=== PATIENT | male | born 1950 | race African-American/Black ===

== ENCOUNTER 2016-10-26 06:16 | Emergency (ER) | payer OTHER ==
[~2016-10-26 06:16] MED LIST: ATENOLOL50 MG PO; NOR10 PO; PROTONIX40 MG PO; RENVELA800 M1 PO
[2016-10-26 07:53] LABS: BASOPHIL % 0.1 % (0-2); PLATELET COUNT 135 x10^3mcL (130-400); RED CELL DISTRIBUTION WIDTH 14.3 % (11.5-14.5)
[2016-10-26 08:04] LABS: BILIRUBIN TOTAL 0.5 mg/dL (0.20-1.00); CALCIUM 9.5 mg/dL (8.5-10.1); CARBON DIOXIDE 32.7 mmol/L (21-32); POTASSIUM SERUM 3.3 mmol/L (3.5-5.1); TOTAL PROTEIN, SERUM 6.7 g/dL (6.4-8.2)
[2016-10-26 08:07] LABS: ALBUMIN 2.8 g/dL (3.4-5.0); CREATININE SERUM 9.7 mg/dL (0.7-1.3)
[2016-10-26 08:47] VITALS: BP 138/72
== END 2016-10-26 08:48 | disposition home or self-care (01) ==
LOC: ED 06:16
PROVIDERS: Emergency Medicine
DX: R19.7 Diarrhea, unspecified (principal); I12.0 Hypertensive chronic kidney disease with stage 5 chronic kidney disease or end stage renal disease; N18.6 End stage renal disease
CPT/HCPCS: 36415

== ENCOUNTER 2016-10-27 09:21 | Emergency (ER) | payer OTHER ==
[2016-10-27 10:46] LABS: BASOPHIL % 0.3 % (0-2); PLATELET COUNT 153 x10^3mcL (130-400); RED CELL DISTRIBUTION WIDTH 14.1 % (11.5-14.5)
[2016-10-27 11:28] LABS: BILIRUBIN TOTAL 0.47 mg/dL (0.20-1.00); CALCIUM 9.2 mg/dL (8.5-10.1); CARBON DIOXIDE 28.9 mmol/L (21-32); POTASSIUM SERUM 3.6 mmol/L (3.5-5.1); TOTAL PROTEIN, SERUM 6.9 g/dL (6.4-8.2)
[2016-10-27 11:30] LABS: ALBUMIN 2.8 g/dL (3.4-5.0); CREATININE SERUM 13.3 mg/dL (0.7-1.3)
[2016-10-27 13:26] VITALS: BP 124/69
== END 2016-10-27 13:26 | disposition home or self-care (01) ==
LOC: ED 09:21
PROVIDERS: Emergency Medicine
DX: B34.9 Viral infection, unspecified (principal); I12.0 Hypertensive chronic kidney disease with stage 5 chronic kidney disease or end stage renal disease; N18.6 End stage renal disease; Z99.2 Dependence on renal dialysis; Z79.899 Other long term (current) drug therapy
CPT/HCPCS: 83880

== ENCOUNTER 2016-11-26 12:45 | Emergency (ER) | payer OTHER ==
[2016-11-26 13:48] VITALS: BP 157/88
== END 2016-11-26 13:48 | disposition home or self-care (01) ==
LOC: ED 12:45
DX: T82.838A Hemorrhage due to vascular prosthetic devices, implants and grafts, initial encounter (principal); I10 Essential (primary) hypertension; Y92.89 Other specified places as the place of occurrence of the external cause

== ENCOUNTER → 2017-01-20 | Outpatient (CLI) | payer OTHER | END | disposition home or self-care (01) | LOC: RD 14:21 | DX: M25.551 Pain in right hip (principal) ==

== ENCOUNTER 2018-04-24 15:46 | Inpatient (IN) | payer OTHER ==
[~2018-04-24] VITALS: Ht 188 cm; Wt 48.5 kg
[2018-04-24 15:51] VITALS: Ht 188 cm; Wt 48.5 kg
[2018-04-24] MEDS ORDERED: NATURE'S BLEND F1 MG PO (16:25)
[2018-04-24] MEDS ORDERED: HYDRALAZINE HCL50 MG PO (16:25)
[2018-04-24] MEDS ORDERED: NEPHRO-VITE VITA1 EA PO (16:26)
[2018-04-24] MEDS ORDERED: NOR10 PO (16:26)
[2018-04-24] MEDS ORDERED: CARVEDILOL12.5 M1 PO (16:27)
[2018-04-24] MEDS ORDERED: SENSIPAR30 M1 PO (16:27)
[2018-04-24 17:19] LABS: BASOPHIL % 0.3 % (0-2); PLATELET COUNT 187 x10^3mcL (130-400); RED CELL DISTRIBUTION WIDTH 13.7 % (11.5-14.5)
[2018-04-24 17:46] LABS: ALBUMIN 3.6 g/dL (3.4-5.0); BILIRUBIN TOTAL 0.5 mg/dL (0.20-1.00); CALCIUM 9.5 mg/dL (8.5-10.1); CARBON DIOXIDE 36.5 mmol/L (21-32); FREE T4 1.09 ng/dL (0.76-1.46); POTASSIUM SERUM 3.5 mmol/L (3.5-5.1); TOTAL PROTEIN, SERUM 8.2 g/dL (6.4-8.2)
[2018-04-24 18:12] LABS: ERYTHROCYTE SED RATE 69 mm/hr (0-20)
[2018-04-24 20:23] LABS: CHOLESTEROL/HDL RATIO 2.3; MAGNESIUM 2.2 mg/dL (1.8-2.4); PHOSPHOROUS 3.4 mg/dL (2.5-4.9)
[2018-04-24 22:01] VITALS: BP 186/93
[2018-04-25 00:30] VITALS: BP 156/90
[2018-04-25 06:02] VITALS: BP 177/89
[2018-04-25 06:30] LABS: BASOPHIL % 0.1 % (0-2); PLATELET COUNT 171 x10^3mcL (130-400); RED CELL DISTRIBUTION WIDTH 13.5 % (11.5-14.5)
[2018-04-25 07:07] LABS: C REACTIVE PROTEIN 0.8 mg/dL (<=0.9); CALCIUM 9.7 mg/dL (8.5-10.1); CARBON DIOXIDE 34.2 mmol/L (21-32); MAGNESIUM 2.3 mg/dL (1.8-2.4); PHOSPHOROUS 5.2 mg/dL (2.5-4.9); POTASSIUM SERUM 4.6 mmol/L (3.5-5.1)
[2018-04-25 07:09] LABS: CREATININE SERUM 9.8 mg/dL (0.7-1.3)
[2018-04-25 07:51] VITALS: BP 151/87
[2018-04-25 10:49] LABS: ERYTHROCYTE SED RATE 58 mm/hr (0-20)
[2018-04-25 12:07] VITALS: BP 148/78
[2018-04-25 14:09] VITALS: BP 148/78
== END 2018-04-25 17:15 | disposition home or self-care (01) | DRG 682 ==
LOC: ED 15:46 → MU 19:47
PROVIDERS: Emergency Medicine; ADMIT Internal Medicine
DX: I12.0 Hypertensive chronic kidney disease with stage 5 chronic kidney disease or end stage renal disease (principal); N18.6 End stage renal disease; K85.90 Acute pancreatitis without necrosis or infection, unspecified; Z94.0 Kidney transplant status; E83.39 Other disorders of phosphorus metabolism; Z68.23 Body mass index [BMI] 23.0-23.9, adult; Z99.2 Dependence on renal dialysis; Z87.891 Personal history of nicotine dependence
CPT/HCPCS: 84439; J7512; Q0092

== ENCOUNTER 2018-07-09 17:35 | Inpatient (IN) | payer OTHER ==
[~2018-07-09] VITALS: Ht 188 cm; Wt 77.3 kg
[~2018-07-09 17:35] MED LIST changes: +CARVEDILOL12.5 M1 PO; +HYDRALAZINE HCL50 MG PO; +NATURE'S BLEND F1 MG PO; +NEPHRO-VITE VITA1 EA PO; +SENSIPAR30 M1 PO
[2018-07-09 17:43] VITALS: Ht 188 cm; Wt 77.3 kg
[2018-07-09 18:53] LABS: BASOPHIL % 1.6 % (0-2); PLATELET COUNT 154 x10^3mcL (130-400); RED CELL DISTRIBUTION WIDTH 14.1 % (11.5-14.5)
[2018-07-09 19:19] LABS: BILIRUBIN TOTAL 0.5 mg/dL (0.20-1.00); CALCIUM 8.8 mg/dL (8.5-10.1); CARBON DIOXIDE 32.4 mmol/L (21-32); POTASSIUM SERUM 4.4 mmol/L (3.5-5.1); TOTAL PROTEIN, SERUM 7.5 g/dL (6.4-8.2)
[2018-07-09 19:42] LABS: ALBUMIN 2.2 g/dL (3.4-5.0)
[2018-07-09 19:45] LABS: CREATININE SERUM 10.7 mg/dL (0.7-1.3)
[2018-07-09 21:35] LABS: MAGNESIUM 2.3 mg/dL (1.8-2.4)
[2018-07-09 21:36] LABS: CHOLESTEROL/HDL RATIO 5.6
[2018-07-09 21:44] LABS: T3 TOTAL 0.57 ng/mL
[2018-07-09 21:45] LABS: FREE T4 1.41 ng/dL (0.76-1.46); FREE THYROXINE INDEX 2.8 ug/dL (1.4-4.5); T4(THYROXINE) 7.7 ug/dL (4.7-13.3)
[2018-07-09 22:32] VITALS: BP 98/47
[2018-07-10 05:14] VITALS: BP 104/60
[2018-07-10 06:32] LABS: PLATELET COUNT 143 x10^3mcL (130-400)
[2018-07-10 06:48] LABS: CALCIUM 8.5 mg/dL (8.5-10.1); CARBON DIOXIDE 30.9 mmol/L (21-32); MAGNESIUM 2.3 mg/dL (1.8-2.4); PHOSPHOROUS 3.5 mg/dL (2.5-4.9); POTASSIUM SERUM 4.5 mmol/L (3.5-5.1)
[2018-07-10 06:59] LABS: CREATININE SERUM 11.2 mg/dL (0.7-1.3)
[2018-07-10 07:06] LABS: RED CELL DISTRIBUTION WIDTH 14.6 % (11.5-14.5)
[2018-07-10 09:48] VITALS: BP 103/50
[2018-07-10 12:12] LABS: BAND NEUTROPHIL 3 % (0-10); BASOPHIL 0 % (0-2); MONOCYTE 17 % (0-7); SEGMENTED NEUTROPHILS 71 % (37-75)
[2018-07-10 12:13] LABS: PLATELET MORPHOLOGY PLATELETS DECREASED
[2018-07-10 12:14] LABS: rbc morphology (normal/abnorm) ABNORMAL (NORMAL)
[2018-07-10 13:55] VITALS: BP 94/54
[2018-07-10 16:33] VITALS: BP 97/48
[2018-07-10 20:40] VITALS: BP 122/52
[2018-07-11] VITALS (8 sets, daily range): BP systolic 91–104; BP diastolic 44–49
[2018-07-11 06:14] LABS: CALCIUM 7.8 mg/dL (8.5-10.1); POTASSIUM SERUM 3.8 mmol/L (3.5-5.1)
[2018-07-11 06:18] LABS: PLATELET COUNT 132 x10^3mcL (130-400)
[2018-07-11 06:33] LABS: CREATININE SERUM 8.1 mg/dL (0.7-1.3)
[2018-07-11 06:37] LABS: RED CELL DISTRIBUTION WIDTH 14.6 % (11.5-14.5)
[2018-07-11 09:32] LABS: BAND NEUTROPHIL 5 % (0-10); BASOPHIL 0 % (0-2); MONOCYTE 8 % (0-7); SEGMENTED NEUTROPHILS 71 % (37-75)
[2018-07-11 09:34] LABS: PLATELET MORPHOLOGY PLATELETS DECREASED; rbc morphology (normal/abnorm) ABNORMAL (NORMAL)
[2018-07-11 12:36] LABS: IRON 32 ug/dL (65-170); TOTAL IRON BINDING CAPACITY 79 ug/dL (250-450)
[2018-07-11 13:45] LABS: rbc morphology (normal/abnorm) ABNORMAL (NORMAL)
[2018-07-11 19:25] LABS: BASOPHIL % 0.6 % (0-2); RED CELL DISTRIBUTION WIDTH 13.9 % (11.5-14.5)
[2018-07-11 19:28] LABS: PLATELET COUNT 128 x10^3mcL (130-400)
[2018-07-12 05:19] VITALS: BP 105/53
[2018-07-12 06:22] LABS: CALCIUM 7.7 mg/dL (8.5-10.1); CARBON DIOXIDE 29.3 mmol/L (21-32); POTASSIUM SERUM 3.9 mmol/L (3.5-5.1)
[2018-07-12 06:27] LABS: CREATININE SERUM 10.1 mg/dL (0.7-1.3)
[2018-07-12 06:30] LABS: BASOPHIL % 0.1 % (0-2); PLATELET COUNT 133 x10^3mcL (130-400)
[2018-07-12 06:46] LABS: RED CELL DISTRIBUTION WIDTH 14.6 % (11.5-14.5)
[2018-07-12 09:03] VITALS: BP 106/54
[2018-07-12 17:51] VITALS: BP 121/70
[2018-07-12 19:50] VITALS: BP 118/57
[2018-07-13 05:31] VITALS: BP 106/56
[2018-07-13 06:57] LABS: CALCIUM 8.5 mg/dL (8.5-10.1); POTASSIUM SERUM 3.5 mmol/L (3.5-5.1)
[2018-07-13 06:59] LABS: CREATININE SERUM 7.9 mg/dL (0.7-1.3)
[2018-07-13 07:41] LABS: BASOPHIL % 0.6 % (0-2); PLATELET COUNT 146 x10^3mcL (130-400)
[2018-07-13 07:42] LABS: RED CELL DISTRIBUTION WIDTH 14.6 % (11.5-14.5)
[2018-07-13 08:45] VITALS: BP 106/54
[2018-07-13 12:17] VITALS: BP 109/85
[2018-07-13 16:25] VITALS: BP 117/77
[2018-07-13 20:07] VITALS: BP 109/59
[2018-07-14 05:36] VITALS: BP 114/61
[2018-07-14 06:41] LABS: PLATELET COUNT 147 x10^3mcL (130-400)
[2018-07-14 06:45] LABS: CALCIUM 8.2 mg/dL (8.5-10.1); CARBON DIOXIDE 26.6 mmol/L (21-32); POTASSIUM SERUM 3.8 mmol/L (3.5-5.1)
[2018-07-14 06:54] LABS: CREATININE SERUM 9.8 mg/dL (0.7-1.3)
[2018-07-14 07:42] VITALS: BP 109/54
[2018-07-14 07:44] LABS: RED CELL DISTRIBUTION WIDTH 14.9 % (11.5-14.5)
[2018-07-14] MEDS ORDERED: AMOXICILLIN500 M1 PO (09:18)
[2018-07-14 11:01] VITALS: BP 109/54
[2018-07-14 11:33] VITALS: BP 108/56
[2018-07-14 13:38] LABS: ATYPICAL LYMPH 5 %; BAND NEUTROPHIL 15 % (0-10); MONOCYTE 21 % (0-7); SEGMENTED NEUTROPHILS 44 % (37-75)
[2018-07-14 13:39] LABS: PLATELET MORPHOLOGY LARGE PLATELET SEEN; rbc morphology (normal/abnorm) ABNORMAL (NORMAL); schistocyte (helmet cell) 1+
== END 2018-07-14 13:00 | disposition home or self-care (01) | DRG 871 ==
LOC: ED 17:35 → MU 21:08 → EDBEDREQSVC 21:10 → EDBEDREQ 21:41 → MU 22:08
PROVIDERS: Emergency Medicine; Family Medicine; Internal Medicine; ADMIT Internal Medicine
DX: A41.9 Sepsis, unspecified organism (principal); N18.6 End stage renal disease; N17.0 Acute kidney failure with tubular necrosis; E43 Unspecified severe protein-calorie malnutrition; I12.0 Hypertensive chronic kidney disease with stage 5 chronic kidney disease or end stage renal disease; T86.11 Kidney transplant rejection; E87.1 Hypo-osmolality and hyponatremia; K05.01 Acute gingivitis, non-plaque induced; E83.39 Other disorders of phosphorus metabolism; R74.0 Nonspecific elevation of levels of transaminase and lactic acid dehydrogenase [LDH]; D63.1 Anemia in chronic kidney disease; E78.5 Hyperlipidemia, unspecified; Z99.2 Dependence on renal dialysis; Z68.21 Body mass index [BMI] 21.0-21.9, adult
CPT/HCPCS: 84439; 87804; 94150; 97110-GP; 97116-GP; 97530-GP; J0885-EC; J2270; J2405; J2543; J7030; J7040; J7050; J7060; J7620; P9016; Q0092; Q0163

== ENCOUNTER 2018-07-16 00:41 | Inpatient (IN) | payer OTHER ==
[2018-07-16] VITALS (7 sets, daily range): BP systolic 90–109; BP diastolic 49–55; Ht 188 cm; Wt 74.4 kg
[~2018-07-16] VITALS: Ht 188 cm; Wt 74.4 kg
[~2018-07-16 00:41] MED LIST changes: +AMOXICILLIN500 M1 PO
[2018-07-16 02:09] LABS: PLATELET COUNT 211 x10^3mcL (130-400)
[2018-07-16 02:14] LABS: RED CELL DISTRIBUTION WIDTH 15.8 % (11.5-14.5)
[2018-07-16 02:27] LABS: ALBUMIN 2.1 g/dL (3.4-5.0); BILIRUBIN TOTAL 0.6 mg/dL (0.20-1.00); CALCIUM 8.9 mg/dL (8.5-10.1); CARBON DIOXIDE 24.2 mmol/L (21-32)
[2018-07-16 02:28] LABS: CREATININE SERUM 9.6 mg/dL (0.7-1.3)
[2018-07-16 02:34] LABS: BAND NEUTROPHIL 4 % (0-10); METAMYELOCTE 1 % (0-2); MONOCYTE 10 % (0-7); SEGMENTED NEUTROPHILS 71 % (37-75)
[2018-07-16 02:36] LABS: rbc morphology (normal/abnorm) ABNORMAL (NORMAL)
[2018-07-16 02:38] LABS: PLATELET MORPHOLOGY PLATELETS NORMAL
[2018-07-16 04:27] LABS: MAGNESIUM 2.1 mg/dL (1.8-2.4); PHOSPHOROUS 2.5 mg/dL (2.5-4.9)
[2018-07-16 04:30] LABS: FREE T4 1.63 ng/dL (0.76-1.46)
[2018-07-16 04:38] LABS: CHOLESTEROL/HDL RATIO 5.1
[2018-07-16 04:56] LABS: T3 TOTAL 0.61 ng/mL
[2018-07-16 07:13] LABS: BILIRUBIN DIRECT 0.19 mg/dL (0.0-0.2); BILIRUBIN TOTAL 0.41 mg/dL (0.20-1.00); CALCIUM 8.2 mg/dL (8.5-10.1); CARBON DIOXIDE 25.2 mmol/L (21-32); MAGNESIUM 1.8 mg/dL (1.8-2.4); PHOSPHOROUS 2.9 mg/dL (2.5-4.9); POTASSIUM SERUM 3.8 mmol/L (3.5-5.1); TOTAL PROTEIN, SERUM 6.6 g/dL (6.4-8.2)
[2018-07-16 07:17] LABS: ALBUMIN 1.8 g/dL (3.4-5.0)
[2018-07-16 07:39] LABS: BASOPHIL % 0.7 % (0-2); PLATELET COUNT 156 x10^3mcL (130-400)
[2018-07-16 07:41] LABS: RED CELL DISTRIBUTION WIDTH 15.3 % (11.5-14.5)
[2018-07-17 05:54] VITALS: BP 102/56
[2018-07-17 06:26] LABS: PLATELET COUNT 189 x10^3mcL (130-400)
[2018-07-17 06:43] LABS: CALCIUM 8.6 mg/dL (8.5-10.1); CARBON DIOXIDE 22.9 mmol/L (21-32); POTASSIUM SERUM 4.4 mmol/L (3.5-5.1)
[2018-07-17 06:52] LABS: CREATININE SERUM 11.9 mg/dL (0.7-1.3)
[2018-07-17 09:00] VITALS: BP 114/61
[2018-07-17 09:05] LABS: RED CELL DISTRIBUTION WIDTH 16.3 % (11.5-14.5)
[2018-07-17 13:02] LABS: ATYPICAL LYMPH 2 %; BAND NEUTROPHIL 4 % (0-10); BASOPHIL 0 % (0-2); MONOCYTE 6 % (0-7); SEGMENTED NEUTROPHILS 83 % (37-75)
[2018-07-17 13:03] LABS: PLATELET MORPHOLOGY PLATELETS DECREASED; rbc morphology (normal/abnorm) ABNORMAL (NORMAL)
[2018-07-17 13:14] VITALS: BP 106/60
[2018-07-17 14:25] VITALS: BP 125/71
[2018-07-17 17:47] VITALS: BP 118/61
[2018-07-17 21:12] VITALS: BP 132/72
[2018-07-18 05:52] VITALS: BP 107/65
[2018-07-18 06:57] LABS: CALCIUM 8.7 mg/dL (8.5-10.1); CARBON DIOXIDE 23.7 mmol/L (21-32); MAGNESIUM 1.8 mg/dL (1.8-2.4); POTASSIUM SERUM 3.8 mmol/L (3.5-5.1)
[2018-07-18 07:05] LABS: CREATININE SERUM 8.7 mg/dL (0.7-1.3)
[2018-07-18 07:08] LABS: PLATELET COUNT 177 x10^3mcL (130-400)
[2018-07-18 07:19] LABS: RED CELL DISTRIBUTION WIDTH 15.7 % (11.5-14.5)
[2018-07-18 09:23] VITALS: BP 115/59
[2018-07-18 09:27] LABS: ATYPICAL LYMPH 3 %; BAND NEUTROPHIL 6 % (0-10); BASOPHIL 0 % (0-2); MONOCYTE 13 % (0-7); SEGMENTED NEUTROPHILS 70 % (37-75)
[2018-07-18 09:29] LABS: PLATELET MORPHOLOGY PLATELETS DECREASED; rbc morphology (normal/abnorm) ABNORMAL (NORMAL)
[2018-07-18 13:29] VITALS: BP 118/62
[2018-07-18 18:43] VITALS: BP 133/71
[2018-07-18 20:42] VITALS: BP 124/63
[2018-07-19] VITALS (7 sets, daily range): BP systolic 113–138; BP diastolic 62–78
[2018-07-19 06:40] LABS: CALCIUM 8.5 mg/dL (8.5-10.1); CARBON DIOXIDE 23.4 mmol/L (21-32); MAGNESIUM 1.8 mg/dL (1.8-2.4); POTASSIUM SERUM 3.9 mmol/L (3.5-5.1)
[2018-07-19 07:19] LABS: CREATININE SERUM 10.7 mg/dL (0.7-1.3)
[2018-07-19 07:32] LABS: RED CELL DISTRIBUTION WIDTH 16.5 % (11.5-14.5)
[2018-07-19 15:00] LABS: SEGMENTED NEUTROPHILS 46 % (37-75)
[2018-07-19 15:01] LABS: BAND NEUTROPHIL 13 % (0-10); ovalocyte/elliptocyte 1+; rbc morphology (normal/abnorm) ABNORMAL (NORMAL)
[2018-07-19 15:03] LABS: MONOCYTE 31 % (0-7)
[2018-07-19 15:04] LABS: PLATELET COUNT 188 x10^3mcL (130-400)
[2018-07-19 15:34] LABS: PATH REVIEW for HEMA YES
[2018-07-20 06:15] VITALS: BP 141/69
[2018-07-20 06:33] LABS: CALCIUM 8.9 mg/dL (8.5-10.1); CARBON DIOXIDE 27.9 mmol/L (21-32); POTASSIUM SERUM 3.4 mmol/L (3.5-5.1)
[2018-07-20 06:36] LABS: CREATININE SERUM 8.5 mg/dL (0.7-1.3)
[2018-07-20 06:52] LABS: PLATELET COUNT 185 x10^3mcL (130-400)
[2018-07-20 07:24] VITALS: BP 132/69
[2018-07-20 07:48] LABS: RED CELL DISTRIBUTION WIDTH 16.8 % (11.5-14.5)
[2018-07-20 13:55] LABS: ATYPICAL LYMPH 4 %; BAND NEUTROPHIL 3 % (0-10); BASOPHIL 0 % (0-2); MONOCYTE 14 % (0-7); SEGMENTED NEUTROPHILS 68 % (37-75)
[2018-07-20 13:56] LABS: PLATELET MORPHOLOGY PLATELETS DECREASED; rbc morphology (normal/abnorm) ABNORMAL (NORMAL)
[2018-07-20 16:46] VITALS: BP 133/71
[2018-07-20 20:49] VITALS: BP 131/80
[2018-07-21 06:08] VITALS: BP 113/73
[2018-07-21 06:51] LABS: PLATELET COUNT 195 x10^3mcL (130-400)
[2018-07-21 07:19] LABS: CALCIUM 9.3 mg/dL (8.5-10.1); CARBON DIOXIDE 25.8 mmol/L (21-32); POTASSIUM SERUM 3.6 mmol/L (3.5-5.1)
[2018-07-21 07:29] LABS: CREATININE SERUM 10.6 mg/dL (0.7-1.3)
[2018-07-21 07:33] VITALS: BP 135/75
[2018-07-21 08:51] LABS: RED CELL DISTRIBUTION WIDTH 17.4 % (11.5-14.5)
[2018-07-21 12:41] LABS: BAND NEUTROPHIL 7 % (0-10); MONOCYTE 7 % (0-7); SEGMENTED NEUTROPHILS 65 % (37-75)
[2018-07-21 12:42] LABS: ATYPICAL LYMPH 6 %; PLATELET MORPHOLOGY PLATELETS DECREASED
[2018-07-21 12:43] LABS: rbc morphology (normal/abnorm) ABNORMAL (NORMAL); schistocyte (helmet cell) 1+
[2018-07-21 20:37] VITALS: BP 112/57
[2018-07-22 06:04] VITALS: BP 112/58
[2018-07-22 06:24] LABS: CALCIUM 9.2 mg/dL (8.5-10.1); CARBON DIOXIDE 31.3 mmol/L (21-32); MAGNESIUM 1.8 mg/dL (1.8-2.4); POTASSIUM SERUM 3.4 mmol/L (3.5-5.1)
[2018-07-22 06:33] LABS: PLATELET COUNT 172 x10^3mcL (130-400)
[2018-07-22 06:48] LABS: RED CELL DISTRIBUTION WIDTH 17.1 % (11.5-14.5)
[2018-07-22 09:25] VITALS: BP 159/76
[2018-07-22 10:14] VITALS: BP 159/76
[2018-07-22 10:22] LABS: ATYPICAL LYMPH 4 %; BAND NEUTROPHIL 5 % (0-10); BASOPHIL 0 % (0-2); MONOCYTE 7 % (0-7); SEGMENTED NEUTROPHILS 69 % (37-75)
[2018-07-22 10:23] LABS: PLATELET MORPHOLOGY PLATELETS DECREASED
[2018-07-22 10:24] LABS: rbc morphology (normal/abnorm) ABNORMAL (NORMAL)
[2018-07-22 17:08] VITALS: BP 115/62
[2018-07-22 21:32] VITALS: BP 133/77
[2018-07-23 05:54] LABS: PLATELET COUNT 156 x10^3mcL (130-400)
[2018-07-23 05:55] VITALS: BP 123/62
[2018-07-23 06:35] LABS: CARBON DIOXIDE 26.7 mmol/L (21-32); POTASSIUM SERUM 3.3 mmol/L (3.5-5.1)
[2018-07-23 06:39] LABS: CREATININE SERUM 10.2 mg/dL (0.7-1.3)
[2018-07-23 07:00] LABS: RED CELL DISTRIBUTION WIDTH 16.9 % (11.5-14.5)
[2018-07-23 09:29] VITALS: BP 111/60
[2018-07-23 11:26] LABS: ATYPICAL LYMPH 3 %; BAND NEUTROPHIL 5 % (0-10); BASOPHIL 1 % (0-2); MONOCYTE 13 % (0-7); SEGMENTED NEUTROPHILS 58 % (37-75)
[2018-07-23 11:28] LABS: PLATELET MORPHOLOGY PLATELETS DECREASED; rbc morphology (normal/abnorm) ABNORMAL (NORMAL)
[2018-07-23 13:25] VITALS: BP 111/60
[2018-07-23 16:31] VITALS: BP 129/71
[2018-07-23 21:08] VITALS: BP 143/84
[2018-07-24 06:06] VITALS: BP 102/56
[2018-07-24 06:26] LABS: PLATELET COUNT 155 x10^3mcL (130-400)
[2018-07-24 06:41] LABS: CALCIUM 9.1 mg/dL (8.5-10.1); CARBON DIOXIDE 27.5 mmol/L (21-32); POTASSIUM SERUM 3.4 mmol/L (3.5-5.1)
[2018-07-24 07:06] LABS: RED CELL DISTRIBUTION WIDTH 16.9 % (11.5-14.5)
[2018-07-24 08:49] LABS: RED CELL DISTRIBUTION WIDTH 17.7 % (11.5-14.5)
[2018-07-24 08:50] LABS: PLATELET COUNT 147 x10^3mcL (130-400)
[2018-07-24 09:37] VITALS: BP 122/59
[2018-07-24] MEDS ORDERED: NOVAPLUS ZOSYN1 PD1 IV (10:33)
[2018-07-24] MEDS ORDERED: AMERINET CHOICE1 G1 IV (10:33)
[2018-07-24 12:47] LABS: ATYPICAL LYMPH 5 %; BAND NEUTROPHIL 4 % (0-10); BASOPHIL 0 % (0-2); MONOCYTE 12 % (0-7); MYELOCYTE 1 % (0-2); SEGMENTED NEUTROPHILS 56 % (37-75)
[2018-07-24 12:48] LABS: PLATELET MORPHOLOGY PLATELETS DECREASEDP; rbc morphology (normal/abnorm) ABNORMAL (NORMAL)
[2018-07-24 13:19] LABS: ATYPICAL LYMPH 5 %; BAND NEUTROPHIL 4 % (0-10); BASOPHIL 0 % (0-2); MONOCYTE 12 % (0-7); PLATELET MORPHOLOGY PLATELETS DECREASED; SEGMENTED NEUTROPHILS 56 % (37-75); rbc morphology (normal/abnorm) ABNORMAL (NORMAL)
[2018-07-24 14:54] VITALS: BP 122/59
== END 2018-07-24 16:30 | DRG 871 ==
LOC: ED 00:41 → MU 03:19 → DU 03:19 → MU 07-19 17:15
PROVIDERS: Emergency Medicine; Internal Medicine; ADMIT Family Medicine
DX: A41.9 Sepsis, unspecified organism (principal); J69.0 Pneumonitis due to inhalation of food and vomit; J96.00 Acute respiratory failure, unspecified whether with hypoxia or hypercapnia; N18.6 End stage renal disease; E43 Unspecified severe protein-calorie malnutrition; N39.0 Urinary tract infection, site not specified; R59.0 Localized enlarged lymph nodes; K08.9 Disorder of teeth and supporting structures, unspecified; D63.1 Anemia in chronic kidney disease; Z68.21 Body mass index [BMI] 21.0-21.9, adult; Z90.5 Acquired absence of kidney; Z99.2 Dependence on renal dialysis
CPT/HCPCS: 82962; 84439; 85060; 94150; 97116-GP; 97530-GP; J0456; J0696; J0885-EC; J2543; J3370; J3490; J7030; J7040; J7050; J7613; J7620; J7644; P9016; Q0092; Q0163; Q9967

== ENCOUNTER 2018-08-06 01:06 | Inpatient (IN) | payer OTHER ==
[~2018-08-06] VITALS: Ht 188 cm; Wt 79.2 kg
[~2018-08-06 01:06] MED LIST changes: +AMERINET CHOICE1 G1 IV; +NOVAPLUS ZOSYN1 PD1 IV
[2018-08-06 01:15] VITALS: Ht 188 cm; Wt 79.2 kg
--- NOTE | 2018-08-06 01:19 | NUR ---
PT BIBA FOR COMPLAINTS OF FEVER, DIARRHEA, AND HYPOTENSION. PT CAME FROM [facility], AND NURSES COULD NOT START IV SO BROUGHT IN TO ER. PT HAS NO OTHER COMPLAINTS AT THIS TIME. PT HAS HISTORY OF PNEUMONIA AND HYPERTENSION. HAS L SHUNT IN PLACE FOR DIALYSIS. LAST HAD DIALYSIS ON MONDAY. PT CONNECTED TO POST PRODUCTION ASSISTANT. BP WNL.
[2018-08-06 02:13] LABS: BILIRUBIN TOTAL 0.6 mg/dL (0.20-1.00); CALCIUM 8.7 mg/dL (8.5-10.1); CARBON DIOXIDE 26.8 mmol/L (21-32); POTASSIUM SERUM 3.9 mmol/L (3.5-5.1); TOTAL PROTEIN, SERUM 6.8 g/dL (6.4-8.2)
[2018-08-06 02:14] LABS: ALBUMIN 2.2 g/dL (3.4-5.0)
[2018-08-06 02:17] LABS: CREATININE SERUM 7.4 mg/dL (0.7-1.3)
[2018-08-06 02:33] LABS: PLATELET COUNT 191 x10^3mcL (130-400)
[2018-08-06 02:39] LABS: RED CELL DISTRIBUTION WIDTH 23.3 % (11.5-14.5)
[2018-08-06 03:25] LABS: ATYPICAL LYMPH 5 %; BAND NEUTROPHIL 13 % (0-10); BLAST 10 % (0); METAMYELOCTE 3 % (0-2); MONOCYTE 5 % (0-7); SEGMENTED NEUTROPHILS 40 % (37-75)
[2018-08-06 03:29] LABS: PLATELET MORPHOLOGY FEW LARGE PLATELETS; rbc morphology (normal/abnorm) ABNORMAL (NORMAL); tear drop cell (dacryocyte) 1+
[2018-08-06 03:30] LABS: PATH REVIEW for HEMA YES
[2018-08-06 03:58] LABS: PHOSPHOROUS 3.9 mg/dL (2.5-4.9)
--- NOTE | 2018-08-06 04:03 | NUR ---
CALLED REPORT TO BRIANNA POLK. ALL QUESTIONS AND CONCERNS ANSWERED.
--- NOTE | 2018-08-06 04:47 | NUR ---
PT ARRIVED ON THE FLOOR FROM ER VIA GUERNEASY ACCOMPANIED BY NURSE. PT IS ADMITTED W/ C/O FEVER, DIARRHEA AND HYPOTENSION. HE IS ALERT,ORIENTED X4. LUNGS CTA. NO SOB ON RA. BOWEL SOUNDS ACTIVE. ABDOMEN IS FLAT AND SOFT. HE HAS NO C/O PAIN AT THIS TIME. PT STATD HIS LAST BM WAS YESTERDAY AND WATERY. PT HAS AV SHUNT TO [facility] W/ (+) bruit and thrill.LAST HD WAS MONDAY PER PT. PT IS ANURIC. W/ HL TO RT HAND. CALL LIGHT PLACED W/IN REACH.
[2018-08-06 05:06] VITALS: BP 98/50
--- NOTE | 2018-08-06 05:06 | NUR ---
PT BROUGHT UPSTAIRS TO TELE BY JAMES RN. PT TOLERATED WELL.
--- NOTE | 2018-08-06 05:57 | NUR ---
PT MEDICATED W/ TYLENOL 650 MG PO FOR AMPQ=439.8 .
--- NOTE | 2018-08-06 06:30 | NUR ---
HL TO RT HAND ACCIDENTALLY PULLED OUT BY PT. STARTED NEW IV ON THE RT WRIST.
--- NOTE | 2018-08-06 06:53 | NUR ---
TEMP RECHECKED= 101.7 AFTER TYLENOL WAS GIVEN. COOLING MEASURES IMPLEMENTED AT THIS TIME.
--- NOTE | 2018-08-06 07:40 | NUR ---
PT IS AAOX4. RESP EVEN AND UNLABORED. PT HAS RUL FINE CRACKLES. ON R/A. TELE [address] READING SINUS TACH WITH BBB AND DEPRESSED ST. HR 110.PT AHD LLE TRACE EDEMA. PERIPHERAL PULSES PALPABLE. IV CATH TO RW N/S LOCKED, FLUSHED AND PATENT. SITE WNL. PT DENIES PAIN OR DISCOMFORT. CALL LIGHT WITHIN REACH. BED IN LOW POSITION. BED ALARM ON.
[2018-08-06 08:16] LABS: CALCIUM 8.1 mg/dL (8.5-10.1); CARBON DIOXIDE 25.2 mmol/L (21-32); POTASSIUM SERUM 3.5 mmol/L (3.5-5.1)
[2018-08-06 08:19] LABS: CREATININE SERUM 7.9 mg/dL (0.7-1.3)
[2018-08-06 08:28] LABS: PLATELET COUNT 188 x10^3mcL (130-400)
[2018-08-06 08:35] LABS: RED CELL DISTRIBUTION WIDTH 23.1 % (11.5-14.5)
--- NOTE | 2018-08-06 08:49 | NUR ---
REPORTED TO DR. RUIZ PT'S B/P 85/41 (51), HR 112. PT'S WBC =67.1, CREA= 7.9. PT IS SYMPTOMATIC WITH C/O OF WEAKNESS AND DIZZINESS. NO NEW ORDERS AT THIS TIME. DUE MEDS GIVEN. HOB HORIZONTAL. PT ON COOLING MEASURES. FALL PRECAUTIONS IN PLACE. BED ALARM ON. CALL LIGHT WITHIN REACH.
--- NOTE | 2018-08-06 09:09 | NUR ---
PT IS SITTING UP IN BED WATCHING TV. RESP EVEN AND UNLABORED. DENIES PAIN AND DISCOMFORT. DUE MEDS GIVEN. NO DISTRESS NOTED. CALL LIGHT WITHIN REACH.
--- NOTE | 2018-08-06 09:22 | NUR ---
PRO-AMATINE 5MG PO GIVEN FOR SBP 85/41 (81). PT HOB IS FLAT. PT DENIES DIZZINESS AT THIS TIME. CALL LIGHT WITHIN REACH. WILL CONTINUE TO MONITOR.
[2018-08-06 09:25] VITALS: BP 85/41
--- NOTE | 2018-08-06 10:08 | NUR ---
AM ROUNDS DONE BY DR. DOHERTY AND HEALTHCARE TEAM. PT HAS BEEN GIVEN MED TO HELP INCREASE B/P. PT WILL BE GIVEN ABT TO TREAT POSSIBLE CDIFF. PT WILL BE GIVEN AND INFECTIOUS DISEASE CONSULT ORDER. PT AND AGREED WITH POC.
--- NOTE | 2018-08-06 11:42 | NUR ---
REPORTED TO DR. RUIZ THAT PT RECEIVED PRO-AMATINE AT 0920. PT'S B/P AT 1130 IS 85/41 (51), HR 95. PT REMAINS LYING FLAT IN BED. STATES HE FEELS WEAK WITH NO DIZZINESS. NO NEW ORDERS AT THIS TIME.
--- NOTE | 2018-08-06 11:53 | NUR ---
DR. RUIZ STATED THAT FOR PT'S LOW B/P 85/41 (51) TO GIVE PRO-AMATINE AT 1520 IF PT'S SBP REMAINS BELOW 90MMHG.
[2018-08-06 12:42] VITALS: BP 93/43
--- NOTE | 2018-08-06 12:57 | NUR ---
PT'S B/P 93/43 (59). RESP EVEN AND UNLABORED. PT DENIES PAIN, DISCOMFORT, AND DIZZINESS. PT IS SITTING UP EATING LUNCH AND VISITING WITH AND DAUGHTER. NO DISTRESS NOTED. CONTACT PRECAUTIONS MAINTAINED. CALL LIGHT WITHIN REACH.
[2018-08-06 14:32] LABS: ATYPICAL LYMPH 4 %; BAND NEUTROPHIL 8 % (0-10); BASOPHIL 0 % (0-2); MONOCYTE 5 % (0-7); PLATELET MORPHOLOGY PLATELETS DECREASED; SEGMENTED NEUTROPHILS 67 % (37-75); rbc morphology (normal/abnorm) ABNORMAL (NORMAL)
--- NOTE | 2018-08-06 15:30 | NUR ---
PT RECEIVED WOUND CARE FOR BILATERAL BUTTOCK EXCORIATION AND WOUND TO SACRAL AREA. CLEANSED WITH N/S, PATTED DRY AND APPLIED HYDORGEL AND OPTIFOAM DRESSING TO SACRUUM AND NONADHERENT 4X4 TO BILATERAL BUTTOCK. AIR MATRESS APPLIED TO BED. PT TURN TO R SIDE. PT TAUGHT TO TURN AND REPOSITION FREQUENTLY WHEN IN BED. PT VERBALIZED UNDERSTANDING. CALL LIGHT WITHIN REACH. BED IN LOWEST POSITION. CONTACT PRECAUTIONS OBSERVED. BED ALARM ON.
[2018-08-06 16:00] VITALS: BP 102/48
--- NOTE | 2018-08-06 18:20 | NUR ---
PT IS AAOX4. RESP EVEN AND UNLABORED. PT IS AFEBRILE. DENIES PAIN. NO DISTRESS NOTED. OPTIFOAM IN PLACE TO SACRUUM, CDI. [address] TO BILATERAL BUTTOCKS, CDI. IV CATH N/S LOCKED TO [facility]. SITE WNL. BED IN LOWEST POSITION. CALL LIGHT WITHIN REACH. CONTACT PRECAUTIONS OBSERVED. BED ALARM ON. PT TURNED AND REPOSITIONED THROUGH OUT SHIFT. WILL ENDORSE ALL CARE TO NOC RN.
--- NOTE | 2018-08-06 19:00 | NUR ---
RECEIVED PT IN BED COMFORTABLY RESTING.AAOX4.LUNG SOUND CTA.BREATHING EVEN AND UNLABORED.DENIES ANY PAIN AT THIS TIME.AV SHUNT TO LFA. POSITIVE OF BRUIT AND THRILL. IV SITE TO RW PATENT AND INTACT.AIRMATTRESS IN PLACED.SACRAL WOUND WITH OPTIFOAM AND BILATERAL BUTTOCK WITH 3X4 NON ADHERENT DRESSING.CDI.BED IN LOWEST POSITION,SIDERAILS UP. CALL LIGHT WITHIN REACH. WILL CONTINUE TO MONITOR.
[2018-08-06 21:04] VITALS: BP 98/47
[2018-08-07] VITALS (7 sets, daily range): BP systolic 83–99; BP diastolic 40–51
--- NOTE | 2018-08-07 03:00 | NUR ---
PT HAD LOOSE BM.BUT THE INTERNET SYSTEMS ADMINISTRATOR FORGOT TO COLLECT THE STOOL SAMPLE. REMINDED THE INTERNET SYSTEMS ADMINISTRATOR TO COLLECT NEXT TIME.
--- NOTE | 2018-08-07 05:06 | NUR ---
PT APPEARS TO BE SLEEPING.NO SOB NOTED. NO C/O PAIN.BED IN LOWEST POSITION,CALL LIGHT WITHIN REACH. WILL CONTINUE TO MONITOR.
--- NOTE | 2018-08-07 06:06 | NUR ---
REFUSED TYLENOL FOR TEMP. INITIATED COOLING MEASURES. WILL CONTINUE TO MONITOR.
[2018-08-07 06:58] LABS: CALCIUM 8.4 mg/dL (8.5-10.1); CARBON DIOXIDE 26.3 mmol/L (21-32); POTASSIUM SERUM 3.7 mmol/L (3.5-5.1)
[2018-08-07 07:00] LABS: CREATININE SERUM 9.4 mg/dL (0.7-1.3)
--- NOTE | 2018-08-07 07:00 | NUR ---
RECEIVED PATIENT FROM RN TRAVELING NURSE. PATIENT IS AWAKE, ALERT AND ORIENTED. CONTACT PREC IN PLACE. TELE#7, SR, HR 95. ON ROOM AIR, BREATHING EVEN AND UNLABORED. AV SHUNT NOTED TO LFA. AIR MATTRESS AND FALL PREC IN PLACE. IV NOTED TO RW, SALINE LOCKED, NO S/S ERYTHEMA AT SITE. CALL LIGHT WITHIN EASY REACH. WILL CONTINUE PLAN OF CARE.
--- NOTE | 2018-08-07 07:21 | NUR ---
CARE ENDORSED TO DAY NURSE CASS.
[2018-08-07 07:42] LABS: PLATELET COUNT 129 x10^3mcL (130-400); RED CELL DISTRIBUTION WIDTH 22.8 % (11.5-14.5)
--- NOTE | 2018-08-07 08:50 | NUR ---
DR HOFF NOTIFIED VIA [place] OF BP 88/40 (56). PATIENT DENIES DIZZINESS AMD LIGHTHEADEDNESS. PATIENT IN TRENDELEMBERG POSITION. PROAMATINE GIVEN BY NOC NURSE AROUND 0600. ORDER IS TO BE GIVEN Q6HP. WILL FOLLOW UP.
--- NOTE | 2018-08-07 08:57 | NUR ---
DR HOFF PAGED AT THIS TIME. WILL FOLLOW UP.
--- NOTE | 2018-08-07 10:42 | NUR ---
DR HOFF NOTIFIED OF AM LABS: WBC 66.7. NO FURTHER ORDERS AT THIS TIME. WILL CONTINUE TO MONITOR.
[2018-08-07 12:28] LABS: ATYPICAL LYMPH 7 %; BAND NEUTROPHIL 13 % (0-10); BASOPHIL 0 % (0-2); MONOCYTE 7 % (0-7); SEGMENTED NEUTROPHILS 62 % (37-75); rbc morphology (normal/abnorm) ABNORMAL (NORMAL)
[2018-08-07 12:29] LABS: PLATELET MORPHOLOGY PLATELETS DECREASED
--- NOTE | 2018-08-07 13:23 | NUR ---
DR HOFF PAGED AT THIS TIME REGARDING THE PROCRIT MEDICATION TO BE VERIFIED BY PHARMACY. PENDING CALL BACK.
--- NOTE | 2018-08-07 14:03 | NUR ---
STOOL SAMPLE COLLECTED AND SENT TO LAB AT THIS TIME.
--- NOTE | 2018-08-07 14:34 | NUR ---
WOUND CARE COMPLETED AT THIS TIME PER ORDERS. CLEANSED WITH NS, HYDRAGUARD APPLIED. ADAPTIC DRESSING AND 4X4 GUAZE APPLIED TO RIGHT AND LEFT BUTTOCKS. SURESITE APPLIED. OPTIFOAM TO SACRUM. PATIENT DENIES PAIN DURING DRESSING CHANGE, TOLERATED WELL.
[2018-08-07 14:39] LABS: IRON 99 ug/dL (65-170)
[2018-08-07 14:54] LABS: TOTAL IRON BINDING CAPACITY 90 ug/dL (250-450)
--- NOTE | 2018-08-07 16:49 | NUR ---
WOUND CARE EVALUATION NOTE: SKIN ASSESSMENT DONE PER CHARGE NURSE REQUEST AT 16:30 AM WITH THIS 67 Y/O MALE PT. AT BED SIDE. PT. ADMITTED WITH PRESSURE ULCERS TO SACRALCOCCYX. EXPLAINED THE ULCER HAS BEEN THERE, ADVISE PT. AND SHIFT WEIGHT OR OFF LOAD SACRALCOCCYX DURING HD PROCEDURE.PT IS AAX4. PT SKIN IS WARM AND DRY PLAN OF CARE DISCUSSED WITH PRIMARY RN AND PT. AND PT VERBALIZES UNDERSTANDING INTEGUMENTARY: -UPPER AND LOWER EXTREMITIES DRYNESS, SKIN INTACT -IAD TO RIGHT AND LEFT BUTTOCKS EROSIONS WOUND BED ARE PINK, CLEAN AND MOIST. NO ODOR. -PRESSURE ULCER STAGE 2 TO SACRALCOCCYX WITH 2X1X0.1CM, WOUND BED IS PINK AND MOIST, NO ODOR, FUNMILAYO WOUND SKIN DRY AND INTACT RECOMMENDATIONS: -CLEANSE SACRALCOCCYX, RIGHT AND LEFT BUTTOCKS WITH NS, PAT DRY, APPLY Z-GUARD AND COVER WITH OPTIFOAM QD AND PRN -OFFLOAD BILATERAL HEELS BY PLACING PILLOWS UNDER CALVES UNLESS OTHERWISE CONTRAINDICATED -PRESSURE REDISTUBUTION SURFACE THERAPY -TURN AND REPOSITION Q2H, OFFLOAD SACRALCOCCYX BY TURNING RIGHT AND LEFT -MONITOR SKIN CONDITION EACH TIME PT IS REPOSITIONS -CONTINUE TO FOLLOW RD RECOMMENDATIONS ALL ABOVE RECOMMENDATIONS DISCUSSED WITH PRIMARY RN WILL FOLLOW UP PT Q7-10 DAYS. PLEASE CONTACT WOUND CARE NURSE FOR ANY QUESTION AND CHANGE OF WOUND CONDITION.
--- NOTE | 2018-08-07 18:08 | NUR ---
SPOKE WITH DR HOFF REGARDING PROCRIT ORDER. DR HOFF DENIES GIVING ORDER. PHARMACY NOTIFIED. PATIENT RESTING EASY AT THIS TIME. HD NURSE AT BEDSIDE TO BEGIN HD. PATIENT GIVEN 2 PUDDINGS UPON REQUEST. DENIES SOB ON ROOM AIR. CALL LIGHT WITHIN EASY REACH. PATIENT CARE TO BE ENDORSED TO CHEMIST PHARMACEUTICAL NURSE.
--- NOTE | 2018-08-07 19:15 | NUR ---
RECEIVED PT IN BED ASLEEP.RESPOND TO VERBAL STIMULI.ONGOING HD WITH HD NURSE AT BEDSIDE.AIRMATTRESS IN PLACED.BED IN LOWEST POSITION,CALL LIGHT WITHIN REACH. WILL CONTINUE TO MONITOR.
--- NOTE | 2018-08-07 22:00 | NUR ---
FINISHED HD. ZERO OUT.PER HD NURSE PT'S BP TOO LOW.PT AAOX4. NO SOB NOTED. WILL CONTINUE TO MONITOR.
--- NOTE | 2018-08-08 05:18 | NUR ---
PT ASLEEP.NO SOB NOTED. NO C/O PAIN. WILL CONTINUE TO MONITOR.
[2018-08-08 05:37] VITALS: BP 102/46
[2018-08-08 06:55] LABS: CALCIUM 8.9 mg/dL (8.5-10.1); CARBON DIOXIDE 25.2 mmol/L (21-32); POTASSIUM SERUM 3.6 mmol/L (3.5-5.1)
--- NOTE | 2018-08-08 07:08 | NUR ---
RECEIVED BEDSIDE REPOR TFORM VISION SPECIALIST NURSE. PATIENT IS STABLE, RESPIRASTIONS EVEN, NO SIGNS OF APPARENT SIGNS OF SOB. PATIENT DENIES PAIN AT THIS TIME. PATIENT IS ALERT AND ORIENTED X4. ON TELE MONITOR 07. PATIENT IS ANURIC, HD PATIEINT. ON AIR MATRESS, WOUND TO THE SACRAL AREA WITH OPTIFOAM. IV TO RIGHT HAND IS INTACT, NO REDNESS NOTED. QUESTIONS AND CONCERNS ADDRESSED. SAFETY PRECAUTIONS IN PLACE.
[2018-08-08 07:09] LABS: CREATININE SERUM 7.1 mg/dL (0.7-1.3)
--- NOTE | 2018-08-08 07:25 | NUR ---
CARE ENDORSED TO DAY NURSE DAPHNIE.
--- NOTE | 2018-08-08 08:14 | NUR ---
ADMINISTERED MORNING MEDS. PATIENT TOLORATED WELL. PATIENT ASKED TO HAVE SCD'S REMOVED AT THIS TIME. AT BEDSIDE. NO OTHER NEEDS AT THIS TIME.
[2018-08-08 08:18] LABS: PLATELET COUNT 99 x10^3mcL (130-400); RED CELL DISTRIBUTION WIDTH 23.7 % (11.5-14.5)
[2018-08-08 10:10] VITALS: BP 101/44
--- NOTE | 2018-08-08 10:38 | NUR ---
PATIENT IS STABLE NO APPARENT SIGNS OF SOB. PATIENT DENIES PAIN. PATIENT DENIES ANY OTHER NEEDS AT THIS TIME. QUESTIONS AND CONCERNS ADDRESSED, SAFETY PRECAUTIONS IN PLACE.
[2018-08-08 12:15] LABS: ATYPICAL LYMPH 2 %; BAND NEUTROPHIL 1 % (0-10); BASOPHIL 0 % (0-2); MONOCYTE 2 % (0-7); SEGMENTED NEUTROPHILS 86 % (37-75)
[2018-08-08 12:16] LABS: PLATELET MORPHOLOGY PLATELETS DECREASED; rbc morphology (normal/abnorm) ABNORMAL (NORMAL)
--- NOTE | 2018-08-08 12:38 | NUR ---
PATIENT IS STABLE NO APPARENT SIGNS OF SOB. IS AT BEDSIDE. PATIENT DENIES PAIN. PATIENT DENIES ANY OTHER NEEDS AT THIS TIME. QUESTIONS AND CONCERNS ADDRESSED, SAFETY PRECAUTIONS IN PLACE.
--- NOTE | 2018-08-08 12:40 | NUR ---
PATIENT IS STABLE. NOON MEDICAICATIONS ADMINISTERED. PATIENT TOLORATED WELL. IV SALINE LOCKED TO THE RIGHT HAND. IS AT BEDSIDE. ENCOURAGE PATIENT TO TURN FROM SIDE TO SIDE AND SUPINE EVERY TWO HOURS. SAFETY PRECAUTIONS IN PLACE. PATIENT DENIES ANY OTHER NEEDS AT THIS TIME.
[2018-08-08 14:10] VITALS: BP 102/48
--- NOTE | 2018-08-08 14:31 | NUR ---
PATIENT IS STABLE NO RESPIRATORY DISTRESS NOTED. PATIENT DENIES PAIN AT THIS TIME. PATIENT DENIES OTHER NEEDS AT THIS TIME. SAFETY PRECAUTIONS IN PLACE.
[2018-08-08 16:05] VITALS: BP 100/50
--- NOTE | 2018-08-08 16:07 | NUR ---
SISTER IN [employer] CAME TO VISIT PATIENT. SHE WILL TRANSPORT PATIENT HOME. SHE WAS NOT READY TO TAKE PATIENT SO HE WILL LEAVE AND [facility]. WAITING FOR SISTER IN LAW TO RETURN FOR DISCHAGE.
--- NOTE | 2018-08-08 16:28 | NUR ---
ADMINISTERED AFTERNOON MEDICATION. PATTIENT TOLORATED WELL. NO APPARENT SIGNS OF SOB, PATIENT DENIES ANY OTHER NEEDS AT THIS TIME. SAFETY PRECAUTIONS IN PLACE.
[2018-08-08 17:05] VITALS: BP 102/48
--- NOTE | 2018-08-08 18:03 | NUR ---
PT WAS SEEN FOR DYSPHAGIA. PT HAD MODEATE ORAL DIFFICULTY WITH MASTICATION SKILLS. THEREFORE, PUREE DIET WITH THIN LIQUID IS RECOMMENDAED. RECOMMENDATION PUREE DIET WITH THIN LIQUID.
--- NOTE | 2018-08-08 18:40 | NUR ---
PATIENT IS STABLE, RESTING COMFORATABLY IN BED. PATIENT DENIES PAIN AT THIS TIME. ALERT AND ORIENTED X4, ON TELE MONITOR 07. PULSES PALPABLE TRACE EDEMA LLE. LUNG SOUNDS ARE FINE CRACKLES BILATERAL UPPER LOBE, GREATER ON THE RIGHT. PATIENT IS ANURIC HD PATIENT. LAST HD 08/07/18 WITH 0ML OUT DUE TO HYPOTENSION. GENERASLIZED WEAKNESS BUT ABLE TO REPOSITION DSELF IN BED. HAS SACRAL WOUND WITH OPTIFOAM AND ERYTHEMA TO BOTH BUTTOCKS WITH Z GUARD. IV IS SALINE LOCKED. WILL ENDORSE CARE TO STRIPER NURSE.
--- NOTE | 2018-08-08 19:30 | NUR ---
PT RESTING COMFORTABLY IN BED NO COMPLAINTS OF PAIN AT THIS TIME, NO SOB OR DIFFICULTY BREATHING AT THIS TIME. PT A/0X4 TELE MONITOR [address] SEGMENT, PERIPHERAL PULSES PALPABLE, TRACE EDEMA TO LLE, FINE CRACKLES TO THE LOWER LOBES, 2L VIA NC, BOWEL SOUNDS ACTIVE, ABD SOFT, ROUND, NONTENDER, PT REPORTS BEING ANURIC, RECIEVES HD TUE, THUR, SAT, LAST HD 08/07, 0L OUT DUE TO HYPOTENSION, PT REPORTS GENERALIZED WEAKNESS, IS ON AIRMATRESS, WOUND TO SACRALCOCCYGEAL REAGION OPTIFOAM IN PLACE, IV RIGHT FA SALINE LOCKED. SAFETY PRECAUTIONS IN PLACE WILL CONTINUE TO MONITOR.
--- NOTE | 2018-08-08 21:15 | NUR ---
PT REPORTED SOB, ELEVATED HOB AND INCREASED OXYGEN TO 4L VIA NC. PT REPORTED RELIEF OF SOB, WILL CONTINUE TO MONITOR
[2018-08-08 21:35] VITALS: BP 101/66
--- NOTE | 2018-08-08 23:40 | NUR ---
PT WAS HAD ONE EPISODE OF SOB WHICH RESOLVED WITH INTERVENTION, PT RESTED COMFORTABLY DURING CARE AND HAD NO COMPLAINS OF PAIN, SAFETY PRECAUTIONS WERE MAINTAINED ENDORSED CARE TO ONCOMING RN.
--- NOTE | 2018-08-08 23:50 | NUR ---
EYES CLOSED,NO FACIAL GRIMACING NOTED. RESPIRATION EVEN AND UNLABORED. NO S/S OF ACUTE DISTRESS. CALL LIGHT WITHIN REACH. BED IN LOWEST POSITION.
--- NOTE | 2018-08-09 04:30 | NUR ---
CALL RECEIVED FROM EVELIN OF [facility] AND SAID THAT THE ONCOLOGIST DOES NOT ACCEPT NEW ACUTE ONSET LEUKEMIA. ALSO SAID THAT THEY ARE SHORT OF ONCOLOGISTS AND IS RECOMMENDING TO TRY [facility]. CHARGE NURSE MADE AWARE.
[2018-08-09 05:45] VITALS: BP 107/51
--- NOTE | 2018-08-09 06:00 | NUR ---
ALL DUE MEDICATIONS GIVEN AND WELL TOLERATED. NO ADVERSE REACTION NOTED FROM ATB THERAPY. KEPT CLEAN AND DRY. ALL NEEDS ATTENDED.
[2018-08-09 06:36] LABS: CALCIUM 8.7 mg/dL (8.5-10.1); CARBON DIOXIDE 25.5 mmol/L (21-32); MAGNESIUM 1.9 mg/dL (1.8-2.4); PHOSPHOROUS 2.5 mg/dL (2.5-4.9); POTASSIUM SERUM 3.6 mmol/L (3.5-5.1)
[2018-08-09 06:43] LABS: CREATININE SERUM 8.6 mg/dL (0.7-1.3)
--- NOTE | 2018-08-09 07:00 | NUR ---
RECEIVED BEDSIDE REPORT FROM CHANGE MANAGEMENT EXPERT NURSE. PATIENT IS STABLE. RESTING IN BED COMFORTABLY. THERE ARE NO APPARENT SIGNS OF SOB, ON 2L NC, TOLORATING WELL. THE PATIENT IS ALERT AND ORIENTED. DENIES PAIN AT THIS TIME. IV IS SALINE LOCKED. THER IS A CLEAN. DRY, AND INTACT OPTIFOAM TO THE SACRAL AREA. ABRASIONS TO BILATERAL BUTTOCKS, OPEN TO AIR. QUESTIONS AND CONCERNS ADRESSED, SAFETY PRECAUTIONS IN PLACE.
--- NOTE | 2018-08-09 08:15 | NUR ---
ENCOURAGED AND HELPED PATIENT REPOSITION FROM SUPINE TO LEFT SIDE LAYING. PATIENT TOLORATED WELL. SAFETY PRECAUTIONS IN PLACE.
--- NOTE | 2018-08-09 08:42 | NUR ---
ADMINISTERED MORNING MEDS.PATIENT STABLE ABLE TO TOLORATE WELL. IV SALINE LOCKED, NO REDNESS NOTED. PT JULIAN AT BED SIDE FOR PT EVAL.
[2018-08-09 08:47] LABS: PLATELET COUNT 72 x10^3mcL (130-400); RED CELL DISTRIBUTION WIDTH 22.8 % (11.5-14.5)
[2018-08-09 09:04] VITALS: BP 101/48
--- NOTE | 2018-08-09 10:35 | NUR ---
HD AT BEDSIDE. HD IN PROGRESS. PATIENT DENIES PAIN OR SOB, DIZZINESS, N/V.
--- NOTE | 2018-08-09 10:54 | NUR ---
PATIENT IS IN BED RESTING COMFORTABLY. HD IN PROGRESS. DENIES PAIN OR DIZZNESS. PATIENT DENIES ANY OTHER CONCERNS AT THIS TIME.
--- NOTE | 2018-08-09 11:02 | NUR ---
Initial Nutrition Assessment Dx: Diarrhea, transient hypotension PMHx: ESRD on HD (TTHS), HTN PSHx: Left renal transplant (2003 with rejection in 2007), AV shunt to left FA Labs: (08/09) Na 136, K 3.6, BG 85, BUN 38H, Cr 8.6H, Ca 8.7, AST 142H, WBC 59H, H/H 8.3L/25L, A1c 5.1 Meds: Flagyl, Folic acid, Pro-Amatine, Protonix, Tylenol, Vancomycin, Zofran, Rocephin Diet: Puree, renal diet PO Intake: (08/08) B/L: 20% D: 50% (08/07) B/D: 20% L: 50% Ht: 74" (188 cm) Wt: 174# (79.2 kg) BMI: 22.4 (WNL) IBW: 190# %IBW: 92% UBW: 195-200# (1 year ago) Age: 67 y/o male Food Allergies: None Skin: Stg II sacralcoccyx P/U, AID to B/L buttocks Sanjeev: 18 Edema: Trace to LLE GI: Last BM x multiple episodes of loose stools (08/09) Per H&P, pt. admitted from [facility] for low BP, fever, and diarrhea. Taking 3 types of medications for hypertension management. Recently admitted to facility in July 2018 for UTI, and PNA. Orders in place for transfer to [facility] per provider progress notes with otherwise no acute events overnight. ST swallow evaluation conducted on 08/08/18 with recommendations for a pureed diet texture with thin liquids consistency. HD attempted 08/07 with no output d/t low BP levels. Noted with multiple episodes of hypotension per RN notes. Pt. receiving HD during visit and endorses good tolerance to current diet/texture without GI distress or reports of difficulty chewing or swallowing. Discussed recommendations with provider Dr. Hein, who was agreeable to implementing interventions. Problem with: No c/o N/V/C +multiple episodes of loose stools Problems with: Chewing: N Swallowing: N Current appetite: Fair to poor Recent wt change: None since previous admission %wt change: N/A Vitamin/Supplement use: Nephrovite, Novasource QD, Vit E Special diet at home: Renal diet, avoiding "high salt, potasisum, and phosphorus foods" Physical activity: Unable d/t chronic medical conditions Education: Notified pt. of renal diet and the associated restrictions. Sees a renal dietitian during HD session, and states he still has handouts on the principles of the renal diet. Declined further verbal education/NCM handouts during visit. Estimated Nutritional Needs Based on actual body weight 79.2 kg: Energy: 6177-2692 kcal/d (30-35 kcal/kg- HD maintenance, wound healing) Protein: 95-119 g/d (1.2-1.5 g/kg)- HD maintenance, wound healing support Fluid: 4645-5768 ml/d (1 ml/kcal-fluid balance) or per doctor Nutrition Diagnosis 1. Inadequate PO intake r/t reported fair to poor appetite AEB documented PO intake meeting <75% estimated calorie and protein needs. 2. Increased nutrient needs r/t altered metabolic demands 2/2 hx ESRD on HD and altered skin integrity AEB pt. requiring maintenance HD 3x weekly and presence of Stg. II P/U to sacrococcyx. Intervention/RD recommendations 1. Continue renal diet with pureed texture. Texture as recommended by ST/provider. 2. Continue Nepro QD for an additional 425 calories and 20 g protein for poor PO intake and increased nutrient needs. 3. Nephrovite QD for increased nutrient needs for wound healing support. 4. Brant BID for wound healing support. Monitor/Evaluate Goal: PO intake at least 75% of estimated needs Monitor: PO intake, Labs, GI function, diet tolerance, skin integrity F/U in 3-5 days as moderate risk (5/5-5/)
--- NOTE | 2018-08-09 12:00 | NUR ---
PATIENT IS RESTING COMFORTABLY IN BED, HD IN PROGRESS. PATIENT IS TOLORATING WELL. PATIENT DENIES ANY OTHER NEEDS AT THIS TIME. SAFETY PRECAUTIONS IN PLACE.
--- NOTE | 2018-08-09 13:32 | NUR ---
HD SIN PROGRESS. PATIENT IS TOLORATING WELL. PATIENT DENIES ANY NEEDS AT THIS TIME. SAFETY PRECAUTIONS IN PLACE.
[2018-08-09 13:43] VITALS: BP 111/59
[2018-08-09 13:50] LABS: BAND NEUTROPHIL 10 % (0-10); SEGMENTED NEUTROPHILS 18 % (37-75)
[2018-08-09 13:52] LABS: MONOCYTE 59 % (0-7); ovalocyte/elliptocyte 1+; rbc morphology (normal/abnorm) ABNORMAL (NORMAL)
[2018-08-09 13:53] LABS: PLATELET MORPHOLOGY PLATELETS DECREASED
--- NOTE | 2018-08-09 14:02 | NUR ---
PATIENTIS RESTING COMFORTABLY IN BED, HD IS NOW FINISHED. 700ML OUT. BP 110/55. HR 88. PATIENT IS EATING HIS LUNCH NOW AND HAS DENIED ANY OTHER NEEDS AT THIS TIME. SAFETY PRECAUTIONS IN PLACE.
[2018-08-09 14:45] VITALS: BP 111/59
--- NOTE | 2018-08-09 15:44 | NUR ---
PATIENT IS RESTING COMFORTABLY IN BED. NO APPARENT SIGNS OF SOB, PATIENT DENIES PAIN AT THIS TIME. TOOK PICTURES OF WOUNDS IN PREPERATION FOR PROBABLE TRANSFER. PATIENT DENIES ANY OTHER NEEDS AT THIS TIME. SAFETY PRECAUTIONS IN PLACE.
--- NOTE | 2018-08-09 15:47 | NUR ---
REPORT GIVEN TO OVIDIO AT [facility].
--- NOTE | 2018-08-09 16:00 | NUR ---
PATIENT GIVEN DISCHARGE AND TRANSFER INSTRUCTIONS. PATIENT VERBALIZED UNDERSTANDING OF ALL INSTRUCTIONS. PATIENT IS STABLE AND DENIES ANY OTHER NEEDS AT THIS TIME. SAFETY PRECAUTIONS IN PLACE.
--- NOTE | 2018-08-09 16:32 | NUR ---
TRANSPORTATION IS HERE TO TRANSP[place] PATIENT [place] [facility] PATIENT IS STABLE, DENIES PAIN, OR SOB. NO SIGNS OF APPARENT RESPIRATORY DISTRESS. QUESTIONS AND CONCERNS ADRESSED. ID BANDS REMOVED, PATIENT WILL TO ACUTE CARE SO IV LEFT INTACT. IV FLUSHING WELL. NO REDNESS NOTED. PERSONAL BELONGINGS WITH PATIET'S . SHE IS AT BEDSIDE.
== END 2018-08-09 16:37 | disposition short-term general hospital (02) | DRG 840 ==
LOC: ED 01:06 → DU 03:32
PROVIDERS: Emergency Medicine; Internal Medicine; ADMIT Internal Medicine
DX: D47.9 Neoplasm of uncertain behavior of lymphoid, hematopoietic and related tissue, unspecified (principal); N18.6 End stage renal disease; E43 Unspecified severe protein-calorie malnutrition; N17.0 Acute kidney failure with tubular necrosis; I12.0 Hypertensive chronic kidney disease with stage 5 chronic kidney disease or end stage renal disease; E87.1 Hypo-osmolality and hyponatremia; I95.89 Other hypotension; D63.1 Anemia in chronic kidney disease; Z99.2 Dependence on renal dialysis; Z68.22 Body mass index [BMI] 22.0-22.9, adult
CPT/HCPCS: 83880; 85060; 92526-GN; 92610; J0696; J3490; J7030; J7040; J7050; Q0092